=== PATIENT | female | born 1980 | race Caucasian/White ===

== ENCOUNTER → 2022-02-16 | Outpatient (CLI) | payer BC ==
[~2022-02-16] MED LIST: FLONASE 0.05% N16 GM; IBUPROFEN600 MG PO; NAPROSYN500 MG PO; NORCO 5-325 TA1 EACH PO; PREDNISONE20 MG PO; SUDAFED 60 MG T60 MG PO; ZYRTEC10 MG PO
== END ==
LOC: LAB 15:22
DX: E89.0 Postprocedural hypothyroidism (principal)
CPT/HCPCS: 84443

== ENCOUNTER → 2022-05-23 | Outpatient (CLI) | payer BC | LOC: LAB 11:54 | DX: N92.6 Irregular menstruation, unspecified (principal) | CPT/HCPCS: 36415; 84702 ==

== ENCOUNTER → 2022-05-27 | Outpatient (CLI) | payer BC | LOC: LAB 16:00 | DX: E05.90 Thyrotoxicosis, unspecified without thyrotoxic crisis or storm (principal); Z32.00 Encounter for pregnancy test, result unknown | CPT/HCPCS: 36415; 84443; 84702 ==

== ENCOUNTER → 2022-05-29 | Outpatient (CLI) | payer BC | LOC: LAB 09:42 | DX: O09.90 Supervision of high risk pregnancy, unspecified, unspecified trimester (principal); O99.891 Other specified diseases and conditions complicating pregnancy; R10.2 Pelvic and perineal pain; Z3A.00 Weeks of gestation of pregnancy not specified | CPT/HCPCS: 36415; 84702 ==

== ENCOUNTER → 2022-05-31 | Outpatient (CLI) | payer BC | LOC: LAB 09:16 | DX: Z32.00 Encounter for pregnancy test, result unknown (principal) | CPT/HCPCS: 36415; 84702 ==